=== PATIENT | female | born 1940 | race Caucasian/White ===

== ENCOUNTER 2024-02-15 08:45 | Outpatient (OUT) | payer MEDICARE, MEDICAID, SELFPAY | END 2024-02-15 08:46 | disposition home or self-care (01) | LOC: SLEEP 08:45 | PROVIDERS: PCP Nurse Practitioner; Visit Provider Nurse Practitioner | DX: G47.33 Obstructive sleep apnea (adult) (pediatric) (principal) | CPT/HCPCS: 95806 ==

== ENCOUNTER 2024-03-15 19:50 | Outpatient (OUT) | payer MEDICARE, MEDICAID, SELFPAY | END 2024-03-15 19:51 | disposition home or self-care (01) | LOC: SLEEP 19:50 | PROVIDERS: PCP Nurse Practitioner; Visit Provider Nurse Practitioner | DX: G47.33 Obstructive sleep apnea (adult) (pediatric) (principal) | CPT/HCPCS: 95811 ==